=== PATIENT | female | born 1965 ===

== ENCOUNTER 2020-06-21 06:35 | Day surgery (SDC) | payer OTHER | END 2020-06-21 15:30 | disposition home or self-care (01) | LOC: AMB-ENDOS 06:35 | PROVIDERS: ATTEND Surgery | DX: D12.0 Benign neoplasm of cecum (principal); D12.2 Benign neoplasm of ascending colon; Z12.11 Encounter for screening for malignant neoplasm of colon ==

== ENCOUNTER 2020-07-18 12:30 | Inpatient (IN) | payer OTHER ==
[~2020-07-18] VITALS: Ht 152.4 cm; Wt 75.3 kg
[2020-07-18] MEDS ORDERED: ATORVASTATIN CA10 MG PO (14:47)
[2020-07-18] MEDS ORDERED: LETROZOLE2.5 MG PO (14:47)
[2020-07-18] MEDS ORDERED: ADULT LOW DOSE81 M1 PO (14:48)
[2020-07-18] MEDS ORDERED: ALENDRONATE SOD35 MG PO (14:49)
[2020-07-18] MEDS ORDERED: baclofen PO (14:49)
[2020-07-18] MEDS ORDERED: VITAMIN D3 PO (14:50)
[2020-07-18] MEDS ORDERED: MAGNESIUM400 MG PO (14:50)
[2020-07-18] MEDS ORDERED: SUPER B-50 COM1 EACH PO (14:51)
[2020-07-18] MEDS ORDERED: BIOTIN (14:52)
[2020-07-18] MEDS ORDERED: CALTRATE 600+D1 EAC1 PO (14:53)
[2020-07-21] MEDS ORDERED: GENTLE LAXATIVE5 MG (08:08)
[2020-07-21] MEDS ORDERED: BUTALB-ACETAMI1 EAC2 (08:08)
[2020-07-21] MEDS ORDERED: SMOOTHLAX238 GM (08:08)
[2020-07-21] MEDS ORDERED: CENTRUM SILVER1 EAC2 (08:08)
[2020-07-21] MEDS ORDERED: BACLOFEN20 MG (08:09)
[2020-07-21] MEDS ORDERED: CLONAZEPAM0.5 MG (08:09)
[2020-07-21] MEDS ORDERED: BIOTIN1 MG PO (08:09)
[2020-07-21] MEDS ORDERED: VITAMIN D310 MC2 (08:10)
== END 2020-07-24 10:17 | disposition home or self-care (01) | DRG 331 ==
LOC: O/R 07-21 06:22 → SURH 07-21 06:22
PROVIDERS: ADMIT Surgery; ATTEND Surgery
PROC: 07BB4ZZ Excision of Mesenteric Lymphatic, Percutaneous Endoscopic Approach (ICD-10-PCS; 2020-07-21)
PROC: 0DBF4ZZ Excision of Right Large Intestine, Percutaneous Endoscopic Approach (ICD-10-PCS; principal; 2020-07-21 09:00)
DX: D12.0 Benign neoplasm of cecum (principal); D12.2 Benign neoplasm of ascending colon; R59.0 Localized enlarged lymph nodes; E78.5 Hyperlipidemia, unspecified